=== PATIENT | male | born 1955 | race Caucasian/White ===

== ENCOUNTER 2024-01-05 17:38 | Inpatient (IN) | payer OTHER ==
[2024-01-05 18:10] VITALS: BMI 20.2
[2024-01-05] MEDS ORDERED: ACETAMINOPHEN 325 MG TABLET (FP) PO PRN (20:48)
[2024-01-05] MEDS ORDERED: LOPERAMIDE HCL 2 MG CAPSULE PO PRN (20:48)
[2024-01-05] MEDS ORDERED: NALOXONE (NARCAN) HCL 4 MG/0.1 ML SPRAY NS PRN (20:48)
[2024-01-05] MEDS ORDERED: NICOTINE POLACRILEX 2 MG GUM BUC PRN (20:48)
[2024-01-05] MEDS ORDERED: BENZOCAINE/MENTHOL (CHLORASEPTIC ) LOZENGE MM PRN (20:48)
[2024-01-05] MEDS ORDERED: MAGNESIUM HYDROX 2400MG/30ML ORAL SUSPENSION 30 ML CUP PO PRN (20:48)
[2024-01-05] MEDS ORDERED: guaiFENesin 600 MG TABLET.ER (FP) PO PRN (20:48)
[2024-01-05] MEDS ORDERED: ONDANSETRON *ODT* 4 MG TABLET SL PRN (20:48)
[2024-01-05] MEDS ORDERED: IBUPROFEN 400 MG TABLET (FP) PO PRN (20:48)
[2024-01-05] MEDS ORDERED: POLYETHYLENE GLYCOL (HEALTHYLAX) 3350 17 GM PACKET PO PRN (20:48)
[2024-01-05] MEDS ORDERED: MAG HYDROX/AL HYDROX/SIMETH 30 ML UNIT-DOSE CUP PO PRN (20:48)
[2024-01-05] MEDS ORDERED: NALOXONE HCL 0.4 MG/ML VIAL IM PRN (20:48)
[2024-01-05] MEDS ORDERED: IBUPROFEN 600 MG TABLET (FP) PO PRN (20:48)
[2024-01-05] MEDS ORDERED: BISMUTH SUBSALICYLATE 524 MG/30 ML PO PRN (20:48)
[2024-01-05] MEDS ORDERED: BENZONATATE 200 MG CAPSULE PO PRN (20:48)
[2024-01-05] MEDS: LORazepam 1 MG TABLET PO PRN (23:33)
[2024-01-05] MEDS: THIAMINE 100 MG TABLET PO SCH (23:33)
[2024-01-05] MEDS: MELATONIN 5 MG TABLETS PO SCH (23:33)
[2024-01-05] MEDS: LORazepam 2 MG TABLET PO SCH (23:59)
[2024-01-06] MEDS: NICOTINE 21 MG/24 HOURS TOPICAL PATCH TD SCH (10:31)
[2024-01-06] MEDS: PRENATAL VITAMINS W/ FOLIC ACID TABLET (FP) PO SCH (10:31)
[2024-01-06 11:42] LABS: HEMOGLOBIN 11.4 GM/dL (11.7-16.9); MCH 30.5 pg (25.7-33.7); MCHC 33.7 g/dl (32.0-35.9); MEAN CELL VOLUME 90.6 fl (80-96); MEAN PLT VOLUME 7.7 fl (7.5-11.1); PLATELET COUNT 609 10^3/uL (134-434); RBC 3.75 M/mm3 (4.00-5.60); RDW 19.6 % (11.9-15.9); WHITE BLOOD COUNT 5.2 K/mm3 (4.0-10.0)
[2024-01-06 12:04] LABS: CHLORIDE 101 mmol/L (98-107); SODIUM 136 mmol/L (136-145)
[2024-01-06 12:09] LABS: ALBUMIN 2.8 g/dl (3.4-5.0); ANION GAP 5 mmol/L (4-13); CALCIUM 9.1 mg/dL (8.5-10.1); CO2 30 mmol/L (21-32); GLUCOSE,RANDOM 87 mg/dL (74-106)
[2024-01-06 12:10] LABS: BLOOD UREA NITROGEN 12.1 mg/dL (7-18)
[2024-01-06] MEDS: methaDONE HCL 10 MG TABLET PO SCH (12:10)
[2024-01-06 12:12] LABS: SGPT/ALT 22 U/L (13-61)
[2024-01-06 12:13] LABS: SGOT/AST 35 U/L (15-37)
[2024-01-06 12:14] LABS: BILIRUBIN,TOTAL 0.4 mg/dL (0.2-1); TOT PROT 6.9 g/dl (6.4-8.2)
[2024-01-06 12:15] LABS: ALK PHOS 127 U/L (45-117)
[2024-01-07] MEDS: LORazepam 1 MG TABLET PO SCH (05:24)
[2024-01-07] MEDS ORDERED: ALBUTEROL SO4 0.083% IH SOL 2.5 MG/3 ML VIAL.NEB. NEB PRN (14:40)
[2024-01-07] MEDS ORDERED: ALBUTEROL SO4 HFA INHALER IH PRN (14:40)
[2024-01-07] MEDS: amLODIPine BESYLATE 2.5 MG TABLET (FP) PO SCH (14:59)
[2024-01-08] MEDS ORDERED: LORazepam 0.5 MG TABLET PO PRN
[2024-01-08] MEDS: LORazepam 0.5 MG TABLET PO SCH (05:24)
[2024-01-08 11:45] LABS: HEMATOCRIT 34.9 % (35.4-49); HEMOGLOBIN 11.4 GM/dL (11.7-16.9); MCH 30.1 pg (25.7-33.7); MCHC 32.8 g/dl (32.0-35.9); MEAN PLT VOLUME 7.6 fl (7.5-11.1); PLATELET COUNT 545 10^3/uL (134-434); RDW 19.3 % (11.9-15.9); WHITE BLOOD COUNT 7.7 K/mm3 (4.0-10.0)
[2024-01-08] MEDS: PANTOPRAZOLE 40 MG TABLET PO SCH (14:35)
[2024-01-08 20:26] VITALS: RESP 16
[2024-01-08] MEDS: ATORVASTATIN CA 40 MG TABLET (FP) PO SCH (22:25)
[2024-01-08] MEDS: METOPROLOL TARTRATE 25 MG TABLET (FP) PO SCH (22:26)
[2024-01-08] MEDS: BUDESONIDE/FORMETEROL FUMARATE 160/4.5 mcg INHALER IH SCH (22:30)
[2024-01-09] MEDS: LORazepam 0.5 MG TABLET PO ONE (05:34)
[2024-01-09 08:41] VITALS: BP 126/86; PULSE 79; TEMP 97.5
== END 2024-01-09 11:47 | disposition home or self-care (01) | DRG 897 ==
LOC: YASAS 17:38 → Y6N 21:55
PROVIDERS: ADMIT Allergy & Immunology; ATTEND Surgery
PROC: HZ2ZZZZ Detoxification Services for Substance Abuse Treatment (ICD-10-PCS; principal; 2024-01-05)
DX: F10.230 Alcohol dependence with withdrawal, uncomplicated (principal); F11.20 Opioid dependence, uncomplicated; F11.10 Opioid abuse, uncomplicated; F17.210 Nicotine dependence, cigarettes, uncomplicated; I10 Essential (primary) hypertension; J44.9 Chronic obstructive pulmonary disease, unspecified; K21.9 Gastro-esophageal reflux disease without esophagitis; E78.5 Hyperlipidemia, unspecified; Z86.19 Personal history of other infectious and parasitic diseases
CPT/HCPCS: 36415; 80053; 80305; 80307; 85027; 86780

== ENCOUNTER 2024-03-01 18:59 | Inpatient (IN) | payer OTHER ==
[2024-03-02 00:43] VITALS: BMI 19.5
[2024-03-02] MEDS ORDERED: NALOXONE HCL 0.4 MG/ML VIAL IM PRN (04:12)
[2024-03-02] MEDS ORDERED: LOPERAMIDE HCL 2 MG CAPSULE PO PRN (04:12)
[2024-03-02] MEDS ORDERED: NICOTINE POLACRILEX 2 MG GUM BUC PRN (04:12)
[2024-03-02] MEDS ORDERED: POLYETHYLENE GLYCOL (HEALTHYLAX) 3350 17 GM PACKET PO PRN (04:12)
[2024-03-02] MEDS ORDERED: ACETAMINOPHEN 325 MG TABLET (FP) PO PRN (04:12)
[2024-03-02] MEDS ORDERED: IBUPROFEN 600 MG TABLET (FP) PO PRN (04:12)
[2024-03-02] MEDS ORDERED: IBUPROFEN 400 MG TABLET (FP) PO PRN (04:12)
[2024-03-02] MEDS ORDERED: DICYCLOMINE HCL 10 MG CAPSULE PO PRN (04:12)
[2024-03-02] MEDS ORDERED: NALOXONE (NARCAN) HCL 4 MG/0.1 ML SPRAY NS PRN (04:12)
[2024-03-02] MEDS ORDERED: MAG HYDROX/AL HYDROX/SIMETH 30 ML UNIT-DOSE CUP PO PRN (04:12)
[2024-03-02] MEDS ORDERED: MAGNESIUM HYDROX 2400MG/30ML ORAL SUSPENSION 30 ML CUP PO PRN (04:12)
[2024-03-02] MEDS ORDERED: BENZONATATE 200 MG CAPSULE PO PRN (04:12)
[2024-03-02] MEDS ORDERED: guaiFENesin 600 MG TABLET.ER (FP) PO PRN (04:12)
[2024-03-02] MEDS ORDERED: BISMUTH SUBSALICYLATE 524 MG/30 ML PO PRN (04:12)
[2024-03-02] MEDS ORDERED: METHOCARBAMOL 500 MG TABLET PO PRN (04:12)
[2024-03-02] MEDS ORDERED: ONDANSETRON *ODT* 4 MG TABLET SL PRN (04:12)
[2024-03-02] MEDS ORDERED: hydrOXYzine PAMOATE 25 MG CAPSULE (FP) PO PRN (04:12)
[2024-03-02] MEDS ORDERED: BENZOCAINE/MENTHOL (CHLORASEPTIC ) LOZENGE MM PRN (04:12)
[2024-03-02] MEDS ORDERED: chlordiazePOXIDE HCL 25 MG CAPSULE PO PRN (04:19)
[2024-03-02] MEDS: TRIMETHOBENZAMIDE HCL 200MG/2ML INJ IM ONE (04:47)
[2024-03-02] MEDS ORDERED: chlordiazePOXIDE HCL 25 MG CAPSULE ONE ×2 (06:29→10:48)
[2024-03-02] MEDS: chlordiazePOXIDE HCL 25 MG CAPSULE PO SCH (06:36)
[2024-03-02] MEDS ORDERED: ALBUTEROL SO4 HFA INHALER IH PRN (09:09)
[2024-03-02] MEDS ORDERED: PRENATAL VITAMINS W/ FOLIC ACID TABLET (FP) PO ONE (10:49)
[2024-03-02] MEDS ORDERED: NICOTINE 14 MG/24 HOURS TOPICAL PATCH TD ONE (10:49)
[2024-03-02] MEDS ORDERED: METOPROLOL TARTRATE 25 MG TABLET (FP) ONE (10:49)
[2024-03-02] MEDS: PRENATAL VITAMINS W/ FOLIC ACID TABLET (FP) PO SCH (10:55)
[2024-03-02] MEDS: METOPROLOL TARTRATE 25 MG TABLET (FP) PO SCH (10:55)
[2024-03-02] MEDS: NICOTINE 14 MG/24 HOURS TOPICAL PATCH TD SCH (10:56)
[2024-03-02] MEDS: PANTOPRAZOLE 40 MG TABLET PO SCH (11:33)
[2024-03-02] MEDS ORDERED: methaDONE HCL 10 MG TABLET ONE (11:41)
[2024-03-02] MEDS: ESOMEPRAZOLE 20 MG PO SCH (13:08)
[2024-03-02] MEDS: methaDONE HCL 10 MG TABLET PO ONE (13:09)
[2024-03-02] MEDS: MELATONIN 5 MG TABLETS PO SCH (22:27)
[2024-03-02] MEDS: THIAMINE 100 MG TABLET PO SCH (22:27)
[2024-03-02] MEDS: ATORVASTATIN CA 40 MG TABLET (FP) PO SCH (22:29)
[2024-03-03] MEDS: chlordiazePOXIDE HCL 25 MG CAPSULE PO SCH (05:48)
[2024-03-03] MEDS ORDERED: methaDONE HCL 40 MG DISPERSABLE TABLET PO SCH (06:00)
[2024-03-03 09:26] LABS: HEMATOCRIT 38.4 % (35.4-49); MCH 31.3 pg (25.7-33.7); MCHC 33.8 g/dl (32.0-35.9); MEAN CELL VOLUME 92.7 fl (80-96); MEAN PLT VOLUME 8.9 fl (7.5-11.1); PLATELET COUNT 236 10^3/uL (134-434); RBC 4.14 M/mm3 (4.00-5.60); WHITE BLOOD COUNT 8.7 K/mm3 (4.0-10.0)
[2024-03-03] MEDS ORDERED: LORazepam 1 MG TABLET PO PRN (10:17)
[2024-03-03] MEDS: LORazepam 2 MG TABLET PO SCH (11:17)
[2024-03-03] MEDS: LORazepam 1 MG TABLET PO SCH (17:52)
[2024-03-04] MEDS ORDERED: chlordiazePOXIDE HCL 10 MG CAPSULE PO PRN
[2024-03-04] MEDS ORDERED: chlordiazePOXIDE HCL 10 MG CAPSULE PO SCH (05:00)
[2024-03-05] MEDS ORDERED: chlordiazePOXIDE HCL 10 MG CAPSULE PO SCH (05:00)
[2024-03-05] MEDS: LORazepam 1 MG TABLET PO SCH (06:12)
[2024-03-05] MEDS: LACTULOSE 20 GM/30 ML UDC (FOR ORAL USE ONLY) PO SCH (10:18)
[2024-03-06] MEDS ORDERED: LORazepam 0.5 MG TABLET PO PRN
[2024-03-06] MEDS ORDERED: chlordiazePOXIDE HCL 10 MG CAPSULE PO ONE (05:00)
[2024-03-06] MEDS: LORazepam 0.5 MG TABLET PO SCH (05:41)
[2024-03-06 10:39] VITALS: RESP 14
[2024-03-06 13:12] VITALS: BP 100/60; PULSE 72; TEMP 98.7
[2024-03-07] MEDS ORDERED: LORazepam 0.5 MG TABLET PO ONE (05:00)
== END 2024-03-06 14:43 | disposition home or self-care (01) | DRG 897 ==
LOC: YASAS 18:59 → Y3N 03-02 12:58
PROVIDERS: ADMIT Surgery; ATTEND Surgery
PROC: HZ2ZZZZ Detoxification Services for Substance Abuse Treatment (ICD-10-PCS; principal; 2024-03-02)
DX: F10.230 Alcohol dependence with withdrawal, uncomplicated (principal); F11.20 Opioid dependence, uncomplicated; Z59.00 Homelessness unspecified; F17.210 Nicotine dependence, cigarettes, uncomplicated; E78.5 Hyperlipidemia, unspecified; I10 Essential (primary) hypertension; J44.9 Chronic obstructive pulmonary disease, unspecified; K21.9 Gastro-esophageal reflux disease without esophagitis
CPT/HCPCS: 36415; 80305; 82140; 85027; 86780; 93005; 93010